=== PATIENT | female | born 1945 | race African-American/Black ===

== ENCOUNTER 2017-08-06 01:38 | Emergency (ER) | payer MEDICARE, MEDICAID ==
[~2017-08-06] VITALS: Ht 170.2 cm; Wt 70.0 kg
[2017-08-06 04:06] LABS: HEMATOCRIT. 43.5 % (36.0-48.0); HEMOGLOBIN. 14.7 g/dL (12.0-16.0); MEAN CORPUSCULAR HEMOGLOBIN 31.4 pg (28.0-32.0); MEAN PLATELET VOLUME 8.8 fl (7.4-10.4); PLATELET 200 x1000/uL (130-400); RED BLOOD CELL COUNT 4.68 mill/uL (4.2-5.4); RED CELL DISTRIBUTION WIDTH 14.3 % (11.6-14.6)
[2017-08-06 04:13] LABS: PROTHROMBIN TIME 10.9 sec (9.4-11.6)
[2017-08-06 04:15] LABS: CHLORIDE 104 mEq/L (98-107)
[2017-08-06 04:21] LABS: TROPONIN I < 0.02 ng/mL (0.00-0.04)
[2017-08-06] MEDS ORDERED: POTASSIUM CHLORIDE 20MEQ TABLET SR PO NR (04:45)
[2017-08-06 05:16] LABS: PLATELET ESTIMATE NORMAL
[2017-08-06 06:29] VITALS: BP 167/88
== END 2017-08-06 06:31 | disposition home or self-care (01) ==
LOC: ER 01:50
DX: F10.129 Alcohol abuse with intoxication, unspecified (principal); E87.6 Hypokalemia; I10 Essential (primary) hypertension
CPT/HCPCS: 36415; 71045; 80053; 82962; 84484; 85025; 85610; 93005; 99285

== ENCOUNTER 2018-02-13 23:21 | Emergency (ER) | payer MEDICARE, MEDICAID ==
[~2018-02-13] VITALS: Ht 170.2 cm; Wt 58.0 kg
[~2018-02-13 23:21] MED LIST: LISI-604 PO
[2018-02-14] MEDS ORDERED: HYDROCODONE/ACETAMINOPHEN 5/325MG TABLET PO ONE (00:15)
[2018-02-14] MEDS ORDERED: LIDOCAINE HCL/EPINEPHRINE 1%-EPI 1:100,000 30 ML VIAL INFIL ONE (00:15)
[2018-02-14] MEDS ORDERED: SULFAMETHOXAZOLE/TRIMETHOPRIM 800/160MG TABLET PO ONE (01:00)
[2018-02-14 02:00] VITALS: BP 170/86
== END 2018-02-14 02:13 | disposition home or self-care (01) ==
LOC: ER 23:21
DX: L73.2 Hidradenitis suppurativa (principal); L02.411 Cutaneous abscess of right axilla; I10 Essential (primary) hypertension; Z72.0 Tobacco use
CPT/HCPCS: 10060; 99283